=== PATIENT | male | born 1990 | race Caucasian/White ===

== ENCOUNTER 2016-10-30 09:07 | Emergency (ER) | payer OTHER ==
[~2016-10-30] VITALS: Ht 165.1 cm; Wt 95.1 kg
[2016-10-30 10:14] LABS: MCH 30.8 PG (29.0-34.0); MCHC 34.9 G/DL (30.0-36.0); MCV 88.2 FL (86-99); MEAN PLAT.VOLUME 9.7 uM^3 (9.0-12.4); PLATELET COUNT 184 K/uL (156-360); RBC DIS.WIDTH-CV 13.2 % (11.8-14.6); RBC DIS.WIDTH-SD 42.3 % (39-53); WHITE BLOOD COUNT 7.9 K/uL (4.1-10.2)
[2016-10-30 10:28] LABS: CHLORIDE 106 mEq/L (99-109); POTASSIUM 4.1 mEq/L (3.7-5.4); SODIUM 141 mEq/L (136-147)
[2016-10-30 10:30] LABS: GLUCOSE 98 mg/dL (70-99)
[2016-10-30 10:32] LABS: ANION GAP 7 MEQ/L (2-14)
[2016-10-30 10:34] LABS: GFR ESTIMATE (CALCULATED) > 59 mL/min/
[2016-10-30 10:35] LABS: TROP-I INTERPRETATION NEGATIVE; TROPONIN-I < 0.01 ng/mL (0.0-0.30); UREA NITROGEN (BUN) 14 mg/dL (9-23)
[2016-10-30] MEDS ORDERED: ALPRAZOLAM0.25 M2 PO (12:04)
[2016-10-30] MEDS ORDERED: ZOLPIDEM TARTRAT5 MG PO (12:05)
[2016-10-30] MEDS ORDERED: BUPROPION HCL100 M1 PO (12:05)
[2016-10-30 12:06] VITALS: BP 140/89
[2016-10-30] MEDS ORDERED: SERTRALINE HCL100 MG PO (12:06)
== END 2016-10-30 12:10 | disposition home or self-care (01) ==
LOC: EME 09:07
DX: R07.89 Other chest pain (principal); F43.9 Reaction to severe stress, unspecified; F17.200 Nicotine dependence, unspecified, uncomplicated
CPT/HCPCS: 71020; 80048; 84484; 85027; 93005; 99281; 99284

== ENCOUNTER 2017-04-22 15:39 | Emergency (ER) | payer OTHER ==
[~2017-04-22] VITALS: Ht 167.6 cm; Wt 97.9 kg
[~2017-04-22 15:39] MED LIST: ALPRAZOLAM0.25 M2 PO; BUPROPION HCL100 M1 PO; SERTRALINE HCL100 MG PO; ZOLPIDEM TARTRAT5 MG PO
[2017-04-22 16:20] LABS: HEMATOCRIT 46.2 % (38.0-50.0); MCH 29.6 PG (29.0-34.0); MCHC 33.5 G/DL (30.0-36.0); MCV 88.2 FL (86-99); MEAN PLAT.VOLUME 9.7 uM^3 (9.0-12.4); PLATELET COUNT 193 K/uL (156-360); RBC DIS.WIDTH-CV 12.1 % (11.8-14.6); RBC DIS.WIDTH-SD 39.7 % (39-53); RED BLOOD COUNT 5.24 M/uL (4.00-5.50)
[2017-04-22 16:29] LABS: CHLORIDE 108 mEq/L (99-109); POTASSIUM 4.2 mEq/L (3.7-5.4)
[2017-04-22 16:30] LABS: AMYLASE 70 IU/L (1-118); SODIUM 138 mEq/L (136-147)
[2017-04-22 16:32] LABS: GLUCOSE 87 mg/dL (70-99)
[2017-04-22 16:33] LABS: ANION GAP 15 MEQ/L (2-14)
[2017-04-22 16:34] LABS: TOTAL BILIRUBIN 0.5 mg/dL (0.0-1.0)
[2017-04-22 16:35] LABS: ALKALINE PHOSPHATASE 66 IU/L (3-129); GFR ESTIMATE (CALCULATED) > 59 mL/min/
[2017-04-22 16:36] LABS: UREA NITROGEN (BUN) 13 mg/dL (9-23)
[2017-04-22 16:39] LABS: LIPASE 12 U/L (1.0-51.0)
[2017-04-22 18:16] LABS: ADD MIUA? YES; BILIRUBIN NEGATIVE; BLOOD NEGATIVE; COLOR YELLOW ((YELLOW)); GLUCOSE (STRIP) NEGATIVE; KETONES NEGATIVE; LEUKOCYTES NEGATIVE; NITRITE NEGATIVE; PROTEIN (STRIP) 30; SPECIFIC GRAVITY 1.027 (1.000-1.030); UROBILINOGEN 0.2 MG/DL (0.2-1.0)
[2017-04-22] MEDS ORDERED: BENTYL20 MG PO (18:21)
[2017-04-22] MEDS ORDERED: MOTRIN800 MG PO (18:21)
[2017-04-22 18:24] LABS: BACTERIA NONE SEEN /HPF; EPITHELIAL CELLS RARE /HPF; HYALINE CASTS 0-5 /LPF; MUCUS 4+ /LPF; RED BLOOD CELLS 0-5 /HPF (0-5); UCUL ADDED? NO; WHITE BLOOD CELLS 0-5 /HPF (0-5)
[2017-04-22 18:37] VITALS: BP 118/84
== END 2017-04-22 18:38 | disposition home or self-care (01) ==
LOC: EME 15:39
PROVIDERS: Nurse Practitioner Family
DX: K80.20 Calculus of gallbladder without cholecystitis without obstruction (principal); F41.9 Anxiety disorder, unspecified; F32.9 Major depressive disorder, single episode, unspecified
CPT/HCPCS: 76705; 80053; 81003; 82150; 83690; 85027; 99281; 99283; J1885

== ENCOUNTER 2017-06-14 05:27 | Day surgery (SDC) | payer OTHER ==
[~2017-06-14] VITALS: Ht 165.1 cm; Wt 92.5 kg
[~2017-06-14 05:27] MED LIST changes: +BENTYL20 MG PO; +DICYCLOMINE HCL20 MG PO; +EFFEXOR XR37.5 MG PO; +MOTRIN800 MG PO; +SERTRALINE HCL50 MG PO; +ZANTAC150 MG PO
[2017-06-14 06:12] VITALS: BP 124/81
[2017-06-14] MEDS ORDERED: COLACE100 MG PO (12:31)
[2017-06-14] MEDS ORDERED: PERCOCET 5/31 TABLET PO (12:31)
[2017-06-14 14:25] VITALS: BP 146/82
[2017-06-14 15:53] VITALS: BP 127/86
== END 2017-06-14 16:00 | disposition home or self-care (01) ==
LOC: SDC 05:27
PROC: 0FT44ZZ Resection of Gallbladder, Percutaneous Endoscopic Approach (ICD-10-PCS; principal; 2017-06-14)
DX: K80.10 Calculus of gallbladder with chronic cholecystitis without obstruction (principal); F41.8 Other specified anxiety disorders; K21.9 Gastro-esophageal reflux disease without esophagitis; F17.210 Nicotine dependence, cigarettes, uncomplicated
CPT/HCPCS: 88304; J0690; J1100; J1170; J2175; J2250; J2405; J2710; J3010